=== PATIENT | male | born 1990 | race Caucasian/White ===

== ENCOUNTER → 2016-07-18 | Outpatient (CLI) | payer OTHER ==
[~2016-07-18] VITALS: Ht 188 cm; Wt 77.1 kg
[~2016-07-18] MED LIST: OMEPRAZOLE40 M1 PO
== END | disposition home or self-care (01) ==
LOC: AMB 11:51
PROC: 0DB68ZX Excision of Stomach, Via Natural or Artificial Opening Endoscopic, Diagnostic (ICD-10-PCS; principal; 2016-07-18)
DX: K31.9 Disease of stomach and duodenum, unspecified (principal); R10.11 Right upper quadrant pain; R11.2 Nausea with vomiting, unspecified; K92.0 Hematemesis; Z87.891 Personal history of nicotine dependence; Z83.79 Family history of other diseases of the digestive system; Z88.0 Allergy status to penicillin
CPT/HCPCS: 88305; 88342 TC; B4087; J2250